=== PATIENT | male | born 1995 | race African-American/Black ===

== ENCOUNTER 2018-04-12 20:59 | Emergency (ER) | payer SELFPAY ==
[~2018-04-12] VITALS: Ht 185.4 cm; Wt 66.0 kg
[2018-04-12] MEDS ORDERED: SODIUM CHLORIDE 0.9% 1,000 ML IV ONE (23:20)
[2018-04-12] MEDS ORDERED: ONDANSETRON HCL 4MG/2ML INJ IV STA (23:20)
[2018-04-12] MEDS ORDERED: FENTANYL CITRATE/PF 50MCG/ML 2ML VIAL IV ONE (23:30)
[2018-04-13 00:52] LABS: HEMATOCRIT. 42.9 % (42.0-52.0); HEMOGLOBIN. 14.8 g/dL (14.0-18.0); MEAN CORPUSCULAR HEMOGLOBIN 31.1 pg (28.0-32.0); MEAN CORPUSCULAR VOLUME 90.1 fL (80.0-94.0); MEAN PLATELET VOLUME 8.8 fl (7.4-10.4); PLATELET 287 x1000/uL (130-400); RED BLOOD CELL COUNT 4.76 mill/uL (4.7-6.1); RED CELL DISTRIBUTION WIDTH 13.4 % (11.6-14.6)
[2018-04-13 00:55] LABS: CHLORIDE 105 mEq/L (98-107)
[2018-04-13 01:27] LABS: PLATELET ESTIMATE NORMAL
[2018-04-13] MEDS ORDERED: IOHEXOL-300 100 ML BOTTLE ONE (01:39)
[2018-04-13 03:33] VITALS: BP 111/62
== END 2018-04-13 03:45 | disposition home or self-care (01) ==
LOC: ER 20:59
DX: S09.8XXA Other specified injuries of head, initial encounter (principal); S22.42XA Multiple fractures of ribs, left side, initial encounter for closed fracture; S27.0XXA Traumatic pneumothorax, initial encounter; S29.8XXA Other specified injuries of thorax, initial encounter; F17.200 Nicotine dependence, unspecified, uncomplicated; J45.909 Unspecified asthma, uncomplicated; W19.XXXA Unspecified fall, initial encounter; Y93.9 Activity, unspecified; Y92.9 Unspecified place or not applicable
CPT/HCPCS: 36415; 70450; 71045; 71260; 74177; 80048; 85025; 96374; 96375; 99285; J2405; J3010; J7030; Q9967